=== PATIENT | female | born 1950 | race Caucasian/White ===

== ENCOUNTER → 2021-01-30 | Outpatient (CLI) | payer BC ==
[~2021-01-30] MED LIST: BENICAR HCT 201 EACH PO; CELEBREX100 MG PO; PREMARIN0.3 MG PO; VYTORIN 10-101 EACH PO
== END ==
LOC: MRI 11:39
PROVIDERS: ATTEND Family Medicine
DX: G44.52 New daily persistent headache (NDPH) (principal)
CPT/HCPCS: 70551; 72141

== ENCOUNTER → 2021-05-24 | Outpatient (CLI) | payer BC | LOC: US 08:05 | PROVIDERS: ATTEND Family Medicine | DX: E04.1 Nontoxic single thyroid nodule (principal) | CPT/HCPCS: 76536 ==

== ENCOUNTER → 2021-05-24 | Outpatient (CLI) | payer BC | LOC: US 07:53 | PROVIDERS: ATTEND Student in an Organized Health Care Education/Training Program | DX: D75.839 Thrombocytosis, unspecified (principal) | CPT/HCPCS: 76700 ==